=== PATIENT | male | born 1955 | race Two or more races ===

== ENCOUNTER 2019-04-30 13:51 | Emergency (ER) | payer MEDICARE ==
[~2019-04-30] VITALS: Ht 172.7 cm; Wt 79.9 kg
[~2019-04-30 13:51] MED LIST: ASPI-1265 PO; LINE600T14 PO; MULT-1179 PO
[2019-04-30 14:07] VITALS: BP 105/66
[2019-04-30] MEDS ORDERED: traMADol 50MG tablet PO ONE (15:30)
[2019-04-30] MEDS ORDERED: TETanus/Pertussis (Acell)/Diphther VAC/PF (Tdap-Adult) 0.5ml syringe IMVAC ONE (15:30)
== END 2019-04-30 16:18 | disposition home or self-care (01) ==
LOC: ER 13:52
DX: S62.606A Fracture of unspecified phalanx of right little finger, initial encounter for closed fracture (principal); S00.81XA Abrasion of other part of head, initial encounter; M25.521 Pain in right elbow; F17.200 Nicotine dependence, unspecified, uncomplicated; Z59.0 Homelessness; Z86.14 Personal history of Methicillin resistant Staphylococcus aureus infection; Z79.82 Long term (current) use of aspirin; Z79.899 Other long term (current) drug therapy; W01.0XXA Fall on same level from slipping, tripping and stumbling without subsequent striking against object, initial encounter; Y93.89 Activity, other specified; Y92.89 Other specified places as the place of occurrence of the external cause; Y99.9 Unspecified external cause status
CPT/HCPCS: 29130; 73090; 73130; 90471; 90715; 99284

== ENCOUNTER 2019-06-06 10:27 | Emergency (ER) | payer MEDICARE ==
[~2019-06-06] VITALS: Ht 172.7 cm; Wt 77.0 kg
[2019-06-06 10:40] VITALS: BP 110/68
[2019-06-06] MEDS ORDERED: clindamycin phosphate 150mg/ml inj. IM ONE (12:55)
[2019-06-06] MEDS ORDERED: CLIN-90 PO (12:56)
== END 2019-06-06 14:07 | disposition home or self-care (01) ==
LOC: ER 10:27
DX: S51.001A Unspecified open wound of right elbow, initial encounter (principal); S61.402A Unspecified open wound of left hand, initial encounter; L03.113 Cellulitis of right upper limb; L03.114 Cellulitis of left upper limb; Z72.89 Other problems related to lifestyle; Z59.0 Homelessness; Z79.82 Long term (current) use of aspirin; Z79.899 Other long term (current) drug therapy; W18.39XA Other fall on same level, initial encounter; Y93.89 Activity, other specified; Y92.89 Other specified places as the place of occurrence of the external cause; Y99.8 Other external cause status
CPT/HCPCS: 73080; 73130; 96372; 99284; J3490

== ENCOUNTER 2020-02-08 14:10 | Emergency (ER) | payer MEDICARE ==
[~2020-02-08] VITALS: Ht 172.7 cm; Wt 80.0 kg
[~2020-02-08 14:10] MED LIST changes: +CLIN-97 PO
[2020-02-08 15:29] LABS: BASOPHILS % (AUTO) 0.4 % (0-1); EOSINOPHILS # (AUTO) 0.7 X10'3 (0-0.9); EOSINOPHILS % (AUTO) 8.2 % (0-6); HEMATOCRIT 39.9 % (42.0-52.0); LYMPHOCYTES # (AUTO) 1.8 X10'3 (1.1-4.8); LYMPHOCYTES % (AUTO) 20.5 % (21-51); MEAN CORPUSCULAR HEMOGLOBIN 27.8 PG (27.0-31.0); MEAN CORPUSCULAR HGB CONC 32.6 g/dL (33.0-36.5); MEAN CORPUSCULAR VOLUME 85.3 FL (78-98); MEAN PLATELET VOLUME 9.1 FL (7.4-10.4); MONOCYTES # (AUTO) 0.7 X10'3 (0-0.9); MONOCYTES % (AUTO) 8.2 % (2-12); NEUTROPHILS # (AUTO) 5.7 X10'3 (1.8-7.7); NEUTROPHILS % (AUTO) 62.7 % (42-75); PLATELET COUNT 228 X10'3 (140-440); RED BLOOD COUNT 4.67 X10'6 (4.70-6.10); RED CELL DISTRIBUTION WIDTH 16.1 % (11.5-14.5)
[2020-02-08 15:42] LABS: PARTIAL THROMBOPLASTIN TIME 27 SECONDS (22-32)
[2020-02-08 15:46] LABS: ALANINE AMINOTRANSFERASE 31 U/L (12-78); ALBUMIN 3.8 G/DL (3.4-5.0); ALKALINE PHOSPHATASE 108 IU/L (46-116); ANION GAP 8 (8-16); ASPARTATE AMINO TRANSFERASE 21 U/L (10-37); BILIRUBIN,TOTAL 0.3 MG/DL (0.1-1.0); BLOOD UREA NITROGEN 11 MG/DL (7-18); BUN/CREATININE RATIO 14.9 (5.4-32.0); CALCIUM 8.8 MG/DL (8.5-10.1); CHLORIDE 104 MMOL/L (99-107); CREATININE 0.74 MG/DL (0.60-1.10); GLUCOSE 99 MG/DL (70-104); POTASSIUM 4.1 MMOL/L (3.5-5.1); SODIUM 137 MMOL/L (135-145); TOTAL CARBON DIOXIDE 25.2 MMOL/L (24-32); TOTAL PROTEIN 7.7 G/DL (6.4-8.2); eGFR > 90 ML/MIN
[2020-02-08] MEDS ORDERED: ketorolac tromethamine 15mg/ml inj. IM ONE (18:15)
[2020-02-08 18:39] VITALS: BP 138/81
== END 2020-02-08 18:42 | disposition home or self-care (01) ==
LOC: ER 14:11
DX: R91.1 Solitary pulmonary nodule (principal); M79.89 Other specified soft tissue disorders; F17.200 Nicotine dependence, unspecified, uncomplicated; Z86.14 Personal history of Methicillin resistant Staphylococcus aureus infection; Z90.89 Acquired absence of other organs; Z72.89 Other problems related to lifestyle; Z60.2 Problems related to living alone; Z59.0 Homelessness; Z79.82 Long term (current) use of aspirin; Z79.2 Long term (current) use of antibiotics; Z79.899 Other long term (current) drug therapy
CPT/HCPCS: 36415; 71045; 80053; 83880; 85025; 85610; 85730; 93005; 93971; 96372; 99285; J1885

== ENCOUNTER 2020-02-08 21:58 | Emergency (ER) | payer MEDICARE ==
[~2020-02-08] VITALS: Ht 172.7 cm; Wt 95.0 kg
[2020-02-08 22:03] VITALS: BP 150/65
== END 2020-02-08 22:27 | disposition home or self-care (01) ==
LOC: ER 21:59
DX: R60.0 Localized edema (principal); Z86.14 Personal history of Methicillin resistant Staphylococcus aureus infection; Z90.89 Acquired absence of other organs; Z72.89 Other problems related to lifestyle; Z60.2 Problems related to living alone; Z59.0 Homelessness; Z79.2 Long term (current) use of antibiotics; Z79.82 Long term (current) use of aspirin; Z79.899 Other long term (current) drug therapy
CPT/HCPCS: 99281

== ENCOUNTER 2020-02-09 14:28 | Emergency (ER) | payer MEDICARE ==
[~2020-02-09] VITALS: Ht 172.7 cm; Wt 77.3 kg
[2020-02-09 14:38] VITALS: BP 142/68
== END 2020-02-09 17:08 | disposition left against medical advice (07) ==
LOC: ER 14:29
DX: M79.604 Pain in right leg (principal); Z53.21 Procedure and treatment not carried out due to patient leaving prior to being seen by health care provider

== ENCOUNTER 2021-08-11 16:17 | Emergency (ER) | payer MEDICARE ==
[~2021-08-11] VITALS: Ht 172.7 cm; Wt 88.6 kg
[2021-08-11 17:13] LABS: BASOPHILS # (AUTO) 0.1 X10'3 (0-0.2); EOSINOPHILS # (AUTO) 0.4 X10'3 (0-0.9); EOSINOPHILS % (AUTO) 5.5 % (0-6); HEMATOCRIT 38.8 % (42.0-52.0); HEMOGLOBIN 13.1 g/dl (14.0-17.9); LYMPHOCYTES # (AUTO) 1.1 X10'3 (1.1-4.8); LYMPHOCYTES % (AUTO) 14.1 % (21-51); MEAN CORPUSCULAR HEMOGLOBIN 32.9 PG (27.0-31.0); MEAN CORPUSCULAR HGB CONC 33.8 g/dL (33.0-36.5); MEAN CORPUSCULAR VOLUME 97.5 FL (78-98); MEAN PLATELET VOLUME 9.3 FL (7.4-10.4); MONOCYTES # (AUTO) 0.6 X10'3 (0-0.9); MONOCYTES % (AUTO) 7.3 % (2-12); NEUTROPHILS # (AUTO) 5.5 X10'3 (1.8-7.7); NEUTROPHILS % (AUTO) 72.1 % (42-75); PLATELET COUNT 201 X10'3 (140-440); RED BLOOD COUNT 3.98 X10'6 (4.70-6.10); RED CELL DISTRIBUTION WIDTH 14.7 % (11.5-14.5); WHITE BLOOD COUNT 7.6 X10'3 (4.5-11.0)
[2021-08-11 17:39] LABS: ALANINE AMINOTRANSFERASE 22 U/L (12-78); ALBUMIN 3.5 G/DL (3.4-5.0); ALKALINE PHOSPHATASE 90 IU/L (46-116); ANION GAP 7 (8-16); ASPARTATE AMINO TRANSFERASE 16 U/L (10-37); BILIRUBIN,TOTAL 0.3 MG/DL (0.1-1.0); BLOOD UREA NITROGEN 11 MG/DL (7-18); BUN/CREATININE RATIO 15.7 (5.4-32.0); CALCIUM 8.4 MG/DL (8.5-10.1); CHLORIDE 111 MMOL/L (99-107); GLUCOSE 98 MG/DL (70-104); POTASSIUM 3.9 MMOL/L (3.5-5.1); SODIUM 143 MMOL/L (135-145); TOTAL PROTEIN 7.1 G/DL (6.4-8.2); eGFR > 90 ML/MIN
[2021-08-11 19:16] VITALS: BP 132/72
== END 2021-08-11 23:05 | disposition home or self-care (01) ==
LOC: ER 16:18
DX: I87.2 Venous insufficiency (chronic) (peripheral) (principal); M79.604 Pain in right leg; M79.605 Pain in left leg; J45.909 Unspecified asthma, uncomplicated; Z86.14 Personal history of Methicillin resistant Staphylococcus aureus infection; Z90.89 Acquired absence of other organs; Z72.89 Other problems related to lifestyle; Z60.2 Problems related to living alone; Z59.00 Homelessness unspecified; Z79.82 Long term (current) use of aspirin; Z79.2 Long term (current) use of antibiotics; Z79.899 Other long term (current) drug therapy
CPT/HCPCS: 36415; 71045; 80053; 84484; 85025; 99284